=== PATIENT | female | born 1960 | race Caucasian/White ===

== ENCOUNTER 2020-07-25 10:49 | Emergency (ER) | payer OTHER ==
[2020-07-25 11:17] LABS: INR 0.89 (0.8-3.0)
[2020-07-25 11:20] LABS: PTT 29.7 SECONDS (25.3-37.0)
[2020-07-25 11:22] LABS: ALBUMIN 3.6 g/dL (3.5-5.0); ALKALINE PHOSPHATASE 74 U/L (38-126); ANION GAP 8.4 MEQ/L (5-15); BLOOD UREA NITROGEN 13 mg/dL (7-17); CHLORIDE 105 mmol/L (98-107); Carbon Dioxide 24 mmol/L (22-30); Creatinine 1 0.62 mg/dL (0.52-1.04); EST GLOMERULAR FILTRATION RATE > 60.0 ML/MIN; Glucose 122 mg/dL (74-106); Potassium 4.3 mmol/L (3.5-5.1); SGOT/AST 64 U/L (14-36); SGPT/ALT 54 U/L (0-35); SODIUM 133 mmol/L (137-145); Total Protein 6.4 g/dL (6.3-8.2)
[2020-07-25 11:25] LABS: Hemoglobin 13.2 gm/dl (12.0-16.0); Mean Cell Volume 99.5 fl (78-100); Mean Corpuscular Hemoglobin 32.8 pg (26-32); Mean Platelet Volume 10.5 fl (7.5-11.0); Platelet Count 151 K/mm3 (150-450); Red Blood Count 4.02 M/mm3 (4.1-5.4); Red Cell Distribution Width 13.4 % (11.5-14.0); White Blood Count 5.1 K/mm3 (4.0-10.5)
[2020-07-25] MEDS ORDERED: Sodium Chloride 0.9% 1000 ML 0 ML ONE (11:28)
[2020-07-25] MEDS: Sodium Chloride 0.9% 1000 ML 1,000 ML IV STA ×2 (11:29→11:35)
[2020-07-25] MEDS ORDERED: Lactated Ringers 1,000 ML IV ONE ×2 (11:35→11:36)
[2020-07-25 12:01] LABS: Eosinophil 2 % (0.00-3.0); Lymphocytes 25 % (24-44); Monocyte 7 % (0.0-12.0); Neutrophils 66 % (36.0-66.0); Platelet Estimate NORMAL (NORMAL); Total Cells Counted 100
[2020-07-25 13:18] LABS: Appearance SLIGHTLY CLOUDY (CLEAR); Bilirubin NEGATIVE (NEGATIVE); Blood NEGATIVE Ery/ul (0-5); Glucose NEGATIVE (NEGATIVE); Ketones NEGATIVE (NEGATIVE); Leukocyte Esterase NEGATIVE (NEGATIVE); Nitrite NEGATIVE (NEGATIVE); Protein,Urine Dip NEGATIVE (Negative); Specific Gravity 1.005 (1.005-1.025); Urobilinogen NEGATIVE mg/dL (0-1)
[2020-07-25 14:05] VITALS: BP 147/84; PULSE 60; O2SAT 99
--- NOTE | 2020-07-25 14:33 | ERPHSYRPT ---
- History of Present Illness Time Seen by Provider: 07/25/20 10:56 Source: patient Exam Limitations: no limitations Patient Subjective Stated Complaint: dizziness and L sided VILLARREAL Triage Nursing Assessment: pt to ED c/o L side VILLARREAL, L side head numbness and tingling, and dizziness onset first of the month. dx with COVID june 25 and when that began to subside she noticed some dizziness and VILLARREAL after. dx with vestibular neuronitis on Jun 16 by ENT in [facility]. states her is worried shes had a stoke and wants her to be ecaulated to rule out CVA. numbness, tingling, dizziness, VILLARREAL none are new sx, all started Jul 10. "headache has just worsened and not gone away." Physician History: 60 years old female complaining of left-sided headache, dizziness and numbness on left face for almost little over 2 weeks. Patient reports she was positive for COVID-19 in mid June, finished our quarantine and has finished dexamethasone few days ago. She was getting ready to go back to work on when she started to feel work tightness symptoms with room spinning sensation and headache on the left side. She was seen by her primary care and was prescribed Augmentin for sinusitis which did help some but not completely resolved the symptoms. She persistently had vertiginous symptoms and was seen by ENT at [place] who diagnosed her with vestibular neuritis and is scheduled to have outpatient MRI next week. Patient reports she is here today to rule out stroke. She denies any double vision but has photophobia and phonophobia and it is affected with headache. She denies any difficulty speech but at times she gets confused over finding words. She has no difficulty walking, focal weakness. Denies any chest pain palpitations or shortness of breath. Timing/Duration: week(s) (2), sudden, worse Severity: moderate Deficits: no difficulties Baseline/Normal Cognition: alert 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 Current Cognition: alert 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 Baseline Gait: walks w/o assistance Associated Symptoms: paresthesia, ringing in ears, headache Allergies/Adverse Reactions: latex Allergy (Verified 07/25/20 11:14) Rash Home Medications: Icosapent Ethyl [Vascepa] 1 gm PO DAILY 07/25/20 [History] Multivitamin 1 tab PO DAILY 07/25/20 [History] Progesterone, Micronized [Prometrium] 100 mg PO DAILY 07/25/20 [History] Thyroid,Pork [[place] Thyroid] 90 mg PO DAILY 07/25/20 [History] Tretinoin [[place] 0.02% Cream] 0 gm TOP DAILY 07/25/20 [History] Vitamin B Complex [Super B Complex] 1 each PO DAILY 07/25/20 [History] Vitamin E 1,000 unit PO DAILY 07/25/20 [History] Hx Tetanus, Diphtheria Vaccination/Date Given: Yes Hx Influenza Vaccination/Date Given: Yes Hx Pneumococcal Vaccination/Date Given: Yes Immunizations Up to Date: Yes Travel Risk - International Travel Have you traveled outside of the country in past 3 weeks: No - Coronavirus Screening Are you exhibiting any of the following symptoms?: Yes Symptoms: Headaches/Body Aches/Fatigue Close contact with a COVID-19 positive Pt in past 14-21 Days: No - Review of Systems Constitutional: No Symptoms Eyes: Photophobia, Vision Changes Ears, Nose, & Throat: Tinnitus, Nose Congestion Respiratory: No Symptoms Cardiac: No Symptoms Abdominal/Gastrointestinal: No Symptoms Genitourinary Symptoms: No Symptoms Musculoskeletal: No Symptoms Skin: No Symptoms Neurological: Headache, Irritability, Sensory Changes Psychological: Anxiety Endocrine: No Symptoms Hematologic/Lymphatic: No Symptoms Immunological/Allergic: No Symptoms - Past Medical History Pertinent Past Medical History: Yes Other Medical History: vestibular neuronitis, PCOS, hypothyroidism, right asymmetrical SNHL, disequilibrium, vertigo - Past Surgical History Past Surgical History: Yes Other Surgical History: DEXA, bunionectomy, colonoscopy, breast implants 2004, L side femur fx - Social History Smoking Status: Never smoker Exposure to second hand smoke: No Drug Use: none Patient Lives Alone: No - Nursing Vital Signs Nursing Vital Signs: Initial Vital Signs Temperature 98.3 F 07/25/20 10:49 Pulse Rate 68 07/25/20 10:49 Respiratory Rate 16 07/25/20 10:49 Blood Pressure 169/92 07/25/20 10:49 O2 Sat by Pulse Oximetry 97 07/25/20 10:49 Pain Scale Pain Intensity 2 - [place] Coma Scale Best Eye Response (Jelena): (4) open spontaneously Best Verbal Response ([place]): (5) oriented Best Motor Response (Jelena): (6) obeys commands (Note) Jelena Total: 15 - Physical Exam General Appearance: no apparent distress, alert, anxiety Eye Exam: bilateral eye: normal inspection, PERRL, EOMI Ears, Nose, Throat Exam: normal ENT inspection Neck Exam: normal inspection, non-tender, supple, full range of motion Respiratory: normal breath sounds, lungs clear Cardiovascular: regular rate/rhythm, normal heart sounds Gastrointestinal: soft, normal bowel sounds, No tenderness Back Exam: normal inspection, normal range of motion Extremity Exam: normal inspection, normal range of motion 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, 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, 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 Exam: normal hearing, normal speech, PERRL Coordination/Gait: normal finger to nose, normal gait, normal cerebellar function, negative Romberg's sign Motor/Sensory: no motor deficit, no sensory deficit, no pronator drift, negative Babinski's sign DTR: bicep (R): 2+, bicep (L): 2+, knee (R): 2+, knee (L): 2+ Skin Exam: normal color SpO2 Interpretation: normal SpO2: 99 O2 Delivery: Room Air - Course EKG Interpreted by Me: RATE (69), Sinus Rhythm, NORMAL AXIS, NORMAL INTERVALS, NORMAL QRS Ordered Tests: Active Orders 24 hr Category Date Time Status EKG-ER Only STAT Care 07/25/20 11:10 Completed IV Insertion STAT Care 07/25/20 11:10 Completed NPO (ED) STAT Care 07/25/20 11:10 Completed POCT Glucose Check STAT Care 07/25/20 11:10 Completed CHEST 1 VIEW (PORTABLE) Stat Exams 07/25/20 11:10 Taken HEAD WITHOUT CONTRAST [CT] Stat Exams 07/25/20 11:11 Taken CBC W DIFF Stat Lab 07/25/20 11:10 Completed CMP Stat Lab 07/25/20 11:10 Completed Manual Differential NC Stat Lab 07/25/20 11:10 Completed POCT GLUCOSE Stat Lab 07/25/20 11:31 Received POCT GLUCOSE Stat Lab 07/25/20 11:32 Completed PROTIME WITH INR Stat Lab 07/25/20 11:10 Completed PTT Stat Lab 07/25/20 11:10 Completed TROPONIN Q3H Lab 07/25/20 11:10 Completed UA W/RFX UR CULTURE Stat Lab 07/25/20 12:33 Completed Medication Summary Discontinued Medications Generic Name Dose Route Start Last Admin Trade Name Freq PRN Reason Stop Dose Admin Sodium Chloride 1,000 mls @ 999 mls/hr 07/25/20 11:10 07/25/20 11:35 Sodium Chloride 0.9% 1000 Ml IV 07/25/20 12:10 Not Given .Q1H1M STA Sodium Chloride Confirm 07/25/20 11:28 Sodium Chloride 0.9% 1000 Ml Administered 07/25/20 11:29 Dose 1,000 mls @ ud .ROUTE .STK-MED ONE Lactated Ringer's 1,000 mls @ 999 mls/hr 07/25/20 11:35 07/25/20 12:58 Lactated Ringers IV 07/25/20 12:35 Infused .Q1H1M ONE Infusion Lactated Ringer's Confirm 07/25/20 11:36 Lactated Ringers Administered 07/25/20 11:37 Dose 1,000 mls @ ud IV .STK-MED ONE Lab/Rad Data: Laboratory Result Diagrams 07/25/20 11:10 07/25/20 11:10 Laboratory Results 07/25/20 07/25/20 07/25/20 Range/Units 12:33 11:32 11:10 WBC (4.0-10.5) K/mm3 RBC (4.1-5.4) M/mm3 Hgb (12.0-16.0) gm/dl Hct (35-47) % MCV (78-100) fl MCH (26-32) pg MCHC (32-36) g/dl RDW (11.5-14.0) % Plt Count (150-450) K/mm3 MPV (7.5-11.0) fl Segmented Neutrophils (36.0-66.0) % Lymphocytes (Manual) (24-44) % Monocytes (Manual) (0.0-12.0) % Eosinophils (Manual) (0.00-3.0) % Platelet Estimate (NORMAL) RBC Morphology PT (9.95-12.35) SECONDS INR (0.8-3.0) APTT (25.3-37.0) SECONDS Sodium (137-145) mmol/L Potassium (3.5-5.1) mmol/L Chloride (98-107) mmol/L Carbon Dioxide (22-30) mmol/L Anion Gap (5-15) MEQ/L BUN (7-17) mg/dL Creatinine (0.52-1.04) mg/dL Estimated GFR ML/MIN Glucose (74-106) mg/dL POC Glucometer 103 (74 to 106) mg/dL Calcium (8.4-10.2) mg/dL Total Bilirubin (0.2-1.3) mg/dL AST (14-36) U/L ALT (0-35) U/L Alkaline Phosphatase (38-126) U/L Troponin I < 0.012 (0.000-0.034) ng/mL Serum Total Protein (6.3-8.2) g/dL Albumin (3.5-5.0) g/dL Urine Color YELLOW (YELLOW) Urine Appearance SLIGHTLY CLOUDY (CLEAR) Urine pH 7.0 (5-6) Ur Specific [place] 1.005 (1.005-1.025) Urine Protein NEGATIVE (Negative) Urine Ketones NEGATIVE (NEGATIVE) Urine Blood NEGATIVE (0-5) Savage/ul Urine Nitrite NEGATIVE (NEGATIVE) Urine Bilirubin NEGATIVE (NEGATIVE) Urine Urobilinogen NEGATIVE (0-1) mg/dL Ur Leukocyte Esterase NEGATIVE (NEGATIVE) Urine WBC (Auto) NONE (0-5) /HPF Urine RBC (Auto) NONE (0-2) /HPF U Epithel Cells (Auto) NONE (FEW) /HPF Urine Bacteria (Auto) NONE (NEGATIVE) /HPF Urine Culture Reflexed NO (NO) Urine Glucose NEGATIVE (NEGATIVE) mg/dL 07/25/20 07/25/20 07/25/20 Range/Units 11:10 11:10 11:10 WBC 5.1 (4.0-10.5) K/mm3 RBC 4.02 L (4.1-5.4) M/mm3 Hgb 13.2 (12.0-16.0) gm/dl Hct 40.0 (35-47) % MCV 99.5 (78-100) fl MCH 32.8 H (26-32) pg MCHC 33.0 (32-36) g/dl RDW 13.4 (11.5-14.0) % Plt Count 151 (150-450) K/mm3 MPV 10.5 (7.5-11.0) fl Segmented Neutrophils 66 (36.0-66.0) % Lymphocytes (Manual) 25 (24-44) % Monocytes (Manual) 7 (0.0-12.0) % Eosinophils (Manual) 2 (0.00-3.0) % Platelet Estimate NORMAL (NORMAL) RBC Morphology NORMAL PT 10.0 (9.95-12.35) SECONDS INR 0.89 (0.8-3.0) APTT 29.7 (25.3-37.0) SECONDS Sodium 133 L (137-145) mmol/L Potassium 4.3 (3.5-5.1) mmol/L Chloride 105 (98-107) mmol/L Carbon Dioxide 24 (22-30) mmol/L Anion Gap 8.4 (5-15) MEQ/L BUN 13 (7-17) mg/dL Creatinine 0.62 (0.52-1.04) mg/dL Estimated GFR > 60.0 ML/MIN Glucose 122 H (74-106) mg/dL POC Glucometer (74 to 106) mg/dL Calcium 9.0 (8.4-10.2) mg/dL Total Bilirubin 0.50 (0.2-1.3) mg/dL AST 64 H (14-36) U/L ALT 54 H (0-35) U/L Alkaline Phosphatase 74 (38-126) U/L Troponin I (0.000-0.034) ng/mL Serum Total Protein 6.4 (6.3-8.2) g/dL Albumin 3.6 (3.5-5.0) g/dL Urine Color (YELLOW) Urine Appearance (CLEAR) Urine pH (5-6) Ur Specific [place] (1.005-1.025) Urine Protein (Negative) Urine Ketones (NEGATIVE) Urine Blood (0-5) Savage/ul Urine Nitrite (NEGATIVE) Urine Bilirubin (NEGATIVE) Urine Urobilinogen (0-1) mg/dL Ur Leukocyte Esterase (NEGATIVE) Urine WBC (Auto) (0-5) /HPF Urine RBC (Auto) (0-2) /HPF U Epithel Cells (Auto) (FEW) /HPF Urine Bacteria (Auto) (NEGATIVE) /HPF Urine Culture Reflexed (NO) Urine Glucose (NEGATIVE) mg/dL - Progress Progress: pain not gone completely, re-examined Progress Note: 07/25/20 14:28 60 years old is evaluated for left-sided headache, vertigo and facial numbness with a recent COVID-19 infection. She is offered symptomatic treatment which she refused. She has a nonfocal neuro exam. I have obtained stroke work-up. CT head is negative. I have obtained [facility] neurology consult who have seen patient and recommended MRI brain for further evaluation although per neurology symptoms are most likely secondary to post viral syndrome. Do not have MRI services available at [facility] over the weekend, discussed with neurology we do not think patient needs to be transferred for emergent MRI keeping in mind that symptoms have been going on for quite some time and has no CT findings. Also patient does not want to be transferred to a different facility. She does have outpatient MRI scheduled for next Monday which according to her they were going to move it to next Monday which is in 3 days. Neurology is okay with discharge and outpatient MRI. Recommended ESR CRP and TSH which are ordered. Also given meclizine and Zofran per neurology recommendations. Discussed signs symptoms of worsening needing return to ER which patient seems understanding. Other supportive measures discussed with patient per recommendation from neurology which she seems understanding. Do not think patient needs any further work-up in the ER and is stable for discharge. Discussed with Dr.: Other Counseled pt/family regarding: lab results, diagnosis, need for follow-up, rad results - Departure Departure Disposition: Home Clinical Impression: Vertigo, Post-COVID syndrome Condition: Stable Critical Care Time: No Referrals: Provider,Unknown [Primary Care Provider] - (Your primary care and ENT early next week for reevaluation.) TREVON GUILLEN [NON-STAFF PHY W/O PRIVILEGES] - Follow Up with PCP/3 days Instructions: Vertigo (a Type of Dizziness) (DC) Additional Instructions: Both well-hydrated. Take meclizine and Zofran as needed for vertigo and nausea. Take Tylenol/ibuprofen as needed for headache. Keep appointment for MRI early next week. Good sleep hygiene. Avoid excessive caffeine and [id number] pain medication use. Follow-up with primary care/ENT and neurology outpatient for reevaluation. Return to ER for worsening headache, numbness tingling weakness, diplopia/double vision etc. Prescriptions: Ondansetron ODT 4 MG [Zofran Odt 4 mg] 4 mg PO Q6H PRN PRN #10 tab.rapdis PRN Reason: Vomiting Meclizine HCl 25 mg [Antivert 25 mg] 25 mg PO TID PRN 10 Days #15 tablet PRN Reason: Dizziness
--- NOTE | 2020-07-25 17:04 | XRAY ---
Indication: Left facial numbness and tingling. Recent positive COVID 19. Multiple contiguous axial images obtained through the head without contrast. Comparison: None Normal appearing brain parenchyma, ventricles, and bony calvarium. Visualized paranasal sinuses and mastoid air cells are clear. Impression: Normal CT head without contrast exam. Comment: Preliminary interpretation was made by [facility]. No critical discrepancy.
--- NOTE | 2020-07-25 17:04 | XRAY ---
Indication: Stroke like symptoms. Recent positive Covid 19. Comparison: None Portable chest demonstrates normal heart and lungs. Bony thorax intact.
== END 2020-07-25 14:46 | disposition home or self-care (01) ==
LOC: ED 10:49
DX: R42 Dizziness and giddiness (principal); Z86.16 Personal history of COVID-19; R51.9 Headache, unspecified; R20.0 Anesthesia of skin; Z79.899 Other long term (current) drug therapy; R53.83 Other fatigue; R09.81 Nasal congestion
CPT/HCPCS: 36000; 36415; 70450; 71045; 80053; 81001; 82947; 84484; 85025; 85610; 85730; 93005; 96360; 99284